=== PATIENT | male | born 1995 | race Caucasian/White ===

== ENCOUNTER 2024-07-15 15:51 | Outpatient (CLI) | payer BC | END 2024-07-15 23:59 | disposition home or self-care (01) | LOC: RAD 15:51 | PROVIDERS: ATTEND Pediatrics Sports Medicine | DX: M19.072 Primary osteoarthritis, left ankle and foot (principal); M25.775 Osteophyte, left foot; M67.272 Synovial hypertrophy, not elsewhere classified, left ankle and foot; M25.572 Pain in left ankle and joints of left foot | CPT/HCPCS: 73700 ==